=== PATIENT | female | born 1940 | race Two or more races ===

== ENCOUNTER 2023-11-16 06:51 | Day surgery (SDC) | payer OTHER ==
[2023-11-16] MEDS ORDERED: GENTAMICIN SULFATE 40 MG/ML VIAL ONE (09:23)
[2023-11-16] MEDS ORDERED: CHLORHEXIDINE GLUCONATE 120 ML BOTTLE TOP ONE ×2 (09:24→12:00)
[2023-11-16] MEDS ORDERED: CEFAZOLIN SODIUM 1,000 MG VIAL ONE (09:24)
[2023-11-16] MEDS ORDERED: LIDOCAINE HCL 1%/EPINEPHRINE 20ML VIAL IJ ONE ×2 (09:24→12:00)
[2023-11-16] MEDS ORDERED: TRAM1TAB98 PO (10:34)
[2023-11-16] MEDS ORDERED: MACROBID 100 M100 MG PO (10:34)
[2023-11-16] MEDS ORDERED: CEFAZOLIN SODIUM 1,000 MG VIAL IV ONE (12:00)
[2023-11-16] MEDS ORDERED: GENTAMICIN SULFATE 40 MG/ML VIAL IR ONE (12:00)
== END 2023-11-16 15:35 | disposition home or self-care (01) ==
LOC: CIR.AMB 06:51
PROVIDERS: ATTEND Obstetrics & Gynecology Gynecology
DX: N81.5 Vaginal enterocele (principal); N81.11 Cystocele, midline; N81.6 Rectocele